=== PATIENT | female | born 1985 | race Caucasian/White ===

== ENCOUNTER 2024-10-03 15:31 | Outpatient (CLI) | payer OTHER, SELFPAY | END 2024-10-03 15:32 | disposition home or self-care (01) | PROVIDERS: PCP Family Medicine; Visit Provider Family Medicine | DX: Z13.220 Encounter for screening for lipoid disorders (principal); Z13.29 Encounter for screening for other suspected endocrine disorder | CPT/HCPCS: 80053; 84443 ==

== ENCOUNTER 2024-10-14 07:39 | Outpatient (CLI) | payer OTHER, SELFPAY ==
--- NOTE | 2024-10-14 08:00 | CRLHL7_ITS ---
For Patients: As a result of the Century Cures Act, medical imaging exams and procedure reports are released immediately into your electronic medical record. You may view this report before your referring provider. If you have questions, please contact your health care provider. INDICATION: Right upper quadrant pain TECHNIQUE: Conventional two-dimensional grayscale ultrasound of the right upper quadrant. COMPARISON: None. FINDINGS: The gallbladder is normal, with no evidence of stones. No gallbladder wall thickening or pericholecystic fluid is demonstrated. The patient is reportedly not tender over the gallbladder. No biliary ductal dilation is evident. The common bile duct measures 3 mm. The liver is normal in size, shape and echogenicity. The pancreas is within normal limits. The right kidney is unremarkable. The visualized portion of the abdominal aorta and inferior vena cava are negative. IMPRESSION: Negative right upper quadrant ultrasound. Dictated by Kelechi Carvajal MD @ 10/14/2024 1:04:14 PM (Electronically Signed)
== END 2024-10-14 07:40 | disposition home or self-care (01) ==
LOC: US 07:41
PROVIDERS: PCP Family Medicine; Visit Provider Family Medicine
DX: R10.11 Right upper quadrant pain (principal)
CPT/HCPCS: 76705

== ENCOUNTER 2024-12-30 07:37 | Outpatient (CLI) | payer OTHER, SELFPAY ==
--- NOTE | 2024-12-30 07:45 | CRLHL7_ITS ---
For Patients: As a result of the Century Cures Act, medical imaging exams and procedure reports are released immediately into your electronic medical record. You may view this report before your referring provider. If you have questions, please contact your health care provider. BILATERAL SCREENING MAMMOGRAM WITH COMPUTER-AIDED DETECTION AND TOMOSYNTHESIS TECHNIQUE: CC and MLO views were obtained. These mammographic images have been obtained using full-field digital technique. These mammographic images were interpreted with the benefit of computer-aided detection. Breast Tomosynthesis was used in this interpretation. COMPARISON FILM: Baseline. FINDINGS: The breasts are heterogeneously dense, which may obscure small masses. IMPRESSION: There is no radiographic evidence for malignancy. ASSESSMENT: BI-RADS Category 1: Negative RECOMMENDATION: Routine screening mammogram in 1 year. A lay language report of this examination will be provided to the patient. Sunil Wade M.D. Diagnostic Radiologist [email or web address] SP/Dictated by: Sunil Wade MD @ 12/30/2024 10:24:00 AM (Electronically Signed)
== END 2024-12-30 07:38 | disposition home or self-care (01) ==
LOC: MAMMO 07:38
PROVIDERS: Visit Provider Family Medicine
DX: Z12.31 Encounter for screening mammogram for malignant neoplasm of breast (principal); R92.333 Mammographic heterogeneous density, bilateral breasts; Z80.3 Family history of malignant neoplasm of breast
CPT/HCPCS: 77063; 77067

== ENCOUNTER 2025-06-25 14:19 | Outpatient (CLI) | payer OTHER, SELFPAY ==
--- NOTE | 2025-06-25 14:30 | CRLHL7_ITS ---
For Patients: As a result of the Century Cures Act, medical imaging exams and procedure reports are released immediately into your electronic medical record. You may view this report before your referring provider. If you have questions, please contact your health care provider. BILATERAL BREAST MRI WITHOUT AND WITH GADOLINIUM CLINICAL HISTORY: Family history of breast cancer in two maternal aunts diagnosed in their 60s and a maternal uncle diagnosed at age 70. INDICATION FOR BREAST MRI: High-risk screening breast MRI. COMPARISON STUDIES: Mammogram 12/30/2024. CONTRAST: 15 mL IV Dotarem. TECHNIQUE: The patient was positioned prone using a breast coil. Multiple imaging sequences were obtained using 1-1.5 mm thick slices with no gap. The image sequences include T2-weighted STIR in the axial plane, T1-weighted nonfat-saturated gradient echo in the axial plane, pre- and post-contrast T1-weighted FLASH 3D with fat suppression in the axial plane, and T1-weighted FLASH high resolution 3D with fat suppression in the sagittal plane. Image post-processing was performed on a [employer] workstation. Complex 3D rendering including maximum intensity projections (MIPS) and volumetric renderings were obtained to optimize visualization of the extent of pathology and relationship to the nipple, skin, and chest wall. This aids in determining feasibility of breast conservation surgery. Subtraction, multiplanar reconstruction, mean curve determination, and angiogenesis mapping were also performed. The study was technically adequate. FINDINGS: Amount of Fibroglandular Tissue: Heterogeneous fibroglandular tissue. Breast Background Enhancement: Minimal. RIGHT Breast: There is no suspicious mass or non-mass enhancement. LEFT Breast: There is no suspicious mass or non-mass enhancement. Lymph Nodes: No abnormal morphology lymph nodes. IMPRESSIONS AND RECOMMENDATIONS: 1. No MRI evidence of malignancy in either breast. 2. Annual screening mammography and continued screening breast MRI, if clinically indicated, are recommended beginning at age 40 or sooner if indicated based on clinical risk factors. BI-RADS Category 1: Negative Dictated by Lindsay Buitrago MD @ 06/26/2025 9:42:30 AM /Dictated by: Lindsay Buitrago MD @ 06/26/2025 9:42:00 AM (Electronically Signed)
== END 2025-06-25 14:20 | disposition home or self-care (01) ==
LOC: MRI 14:20
PROVIDERS: PCP Family Medicine; Visit Provider Surgery
DX: Z12.39 Encounter for other screening for malignant neoplasm of breast (principal); Z91.89 Other specified personal risk factors, not elsewhere classified; Z80.3 Family history of malignant neoplasm of breast
CPT/HCPCS: 77049; C8908; C8937; A9575